=== PATIENT | female | born 1955 | race Caucasian/White ===

== ENCOUNTER → 2017-07-16 | Outpatient (CLI) | payer OTHER | LOC: BRMIMAGING 11:44 | PROVIDERS: ATTEND Internal Medicine | DX: M19.071 Primary osteoarthritis, right ankle and foot (principal); M19.072 Primary osteoarthritis, left ankle and foot; M25.841 Other specified joint disorders, right hand; M25.842 Other specified joint disorders, left hand | CPT/HCPCS: 73130-PO; 73630-PO ==

== ENCOUNTER → 2018-07-16 | Outpatient (CLI) | payer OTHER, MEDICARE ==
[~2018-07-16] MED LIST: IOPAMIDOL (ISOVUE 370) 100 ML BTL IV ONE; LIDOCAINE 1% 300 MG/30 ML SDV ONE
== END ==
LOC: FIMAGING 09:44
PROVIDERS: ATTEND Orthopaedic Surgery
PROC: BQ28YZZ Computerized Tomography (CT Scan) of Left Knee using Other Contrast (ICD-10-PCS; principal; 2018-07-16)
PROC: 3E0U3KZ Introduction of Other Diagnostic Substance into Joints, Percutaneous Approach (ICD-10-PCS; principal; 2018-07-16)
DX: M25.562 Pain in left knee (principal); Z96.652 Presence of left artificial knee joint
CPT/HCPCS: 20611; 73580; 73701; 76882; Q9967